=== PATIENT | female | born 2000 | race African-American/Black ===

== ENCOUNTER 2021-06-26 15:52 | Emergency (ER) | payer OTHER ==
[2021-06-27 15:23] LABS: SARS-CoV-2 PCR by NAA DETECTED (NotDetected)
== END 2021-06-26 17:02 | disposition home or self-care (01) ==
LOC: ERS 15:52
DX: U07.1 COVID-19 (principal); F17.210 Nicotine dependence, cigarettes, uncomplicated
CPT/HCPCS: 99284; U0003; U0005